=== PATIENT | female | born 1985 | race African-American/Black ===

== ENCOUNTER 2023-08-17 11:53 | Emergency (ER) | payer BC, SELFPAY ==
[2023-08-17] VITALS (9 sets, daily range): BP systolic 99–115; BP diastolic 56–87; PULSE 65–93; RESP 12–21; TEMP 36.4; O2SAT 100
--- NOTE | ~2023-08-17 | CT_ITS ---
EXAMINATION: CT abdomen pelvis w con DATE: 08/17/2023 15:14 INDICATION: Lower abdominal pain. TECHNIQUE: Computed tomography (CT) of the abdomen and pelvis was performed with 100 mL Omnipaque-350 intravenous contrast. Automated exposure control and iterative reconstruction technique were employe d. The dose-length product was 510.06 mGy-cm. COMPARISON: None FINDINGS: Lung bases are clear. Heart size is normal. No pericardial or pleural effusion. Liver, gallbladder, s pleen, pancreas, bilateral adrenal glands and kidneys are normal. Bowels including the appendix are n ormal. Marked enlargement of the uterus measuring 18.0 x 2.7 x 10.2 cm. There there is a peripherally enhancing centrally hypoenhancing intrauterine mass measuring 15.7 x 9.2 x 11.7 cm which appears simeon tered primarily in the posterior fundus which appears to extend across the endometrial complex to the anterior uterine body. There is extensive fine branching pattern of gas within the mass. There is a separate smaller peripherally enhancing, centrally hypoenhancing mass measuring 4.2 cm in maximal sandra meter at the lower uterine segment. Bladder and bilateral adnexa are unremarkable. Small amount of li modesto physiologic free fluid in the cul-de-sac. No abscess or free intraperitoneal gas. No pathologica lly enlarged abdominal or pelvic lymphadenopathy. Bones are unremarkable. IMPRESSION: 1. Fine branching pattern of gas within a large intrauterine mass which appears to cross endometrial complex. 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 Differential for in trauterine gas would include pelvic inflammatory disease/endometritis, post intrauterine instrumentat ion, malignancy and abnormal fistulous communication with the gastrointestinal tract. Reviewed, dictated and finalized at location A. IMPRESSION: 1. Fine branching pattern of gas within a large intrauterine mass which appears to cross endometrial complex. Appearance most suggestive of uterine fibroids w ith infected fibromyoma. Differential for intrauterine gas would include pelvic inflammatory disease/endometritis, post intrauterine instrumentation, malignan cy and abnormal fistulous communication with the gastrointestinal tract.
[2023-08-17 14:32] LABS: Basophils Absolute Auto 0.1 K/mm3 (0.0-0.1); Basophils Percent Auto 0.4 % (0.2-1.2); Eosinophils Absolute Auto 0.2 K/mm3 (0-0.3); Eosinophils Percent Auto 1.4 % (0-4.4); Hematocrit 29.4 % (37.0-47.0); Hemoglobin 8.8 g/dL (12.0-15.0); Immature Granulocyte Absolute 0.14 K/mm3 (0.00-0.031); Immature Granulocyte Percent A 1.1 % (0-0.5); Lymphocytes Absolute Auto 2.53 K/mm3 (0.9-3.2); Lymphocytes Percent Auto 19.3 % (18.3-44.2); Mean Corpuscular HGB Conc 29.9 g/dl (32-36); Mean Corpuscular Hemoglobin 23.1 pg (26-34); Mean Corpuscular Volume 77.2 fl (80-100); Mean Platelet Volume 10.4 fl (7.4-10.4); Monocytes Absolute Auto 0.8 K/mm3 (0.1-0.6); Monocytes Percent Auto 6.2 % (2.6-8.5); Neutrophils Absolute Auto 9.4 K/mm3 (1.3-6.7); Neutrophils Percent Auto 71.6 % (45.5-73.1); Platelet Count Result 328 k/mm3 (150-375); Red Blood Count 3.81 M/mm3 (4.2-5.4); Red Cell Distribution Width 17.4 % (11.5-14.5); White Blood Count 13.1 K/mm3 (4.5-10.0)
[2023-08-17] MEDS: SODIUM CHLORIDE 0.9% IV 1,000 ML 999 ML IV CONT (14:36)
[2023-08-17 14:48] LABS: Alanine Aminotransferase 16 U/L (6-35); Alkaline Phosphatase 80 U/L (38-126); Anion Gap 6 mmol/L (8-16); Aspartate Amino Transferase 24 U/L (14-36); Bilirubin,Total 0.4 mg/dL (0.2-1.3); Blood Urea Nitrogen 12 mg/dL (7-17); Calcium 9.3 mg/dL (8.4-10.2); Carbon Dioxide 30 mmol/L (22-30); Chloride 101 mmol/L (98-107); Estimated CRCL calculation 51 ml/min; Estimated Glomerular Filt Rate 56; Glucose 124 mg/dL (65-110); Lipase 275 U/L (23-300); Potassium 3.8 mmol/L (3.4-5.0); Sodium 137 mmol/L (137-145)
[2023-08-17 14:54] LABS: Platelet Estimate Adequate (Adequate)
[2023-08-17 14:55] LABS: Schistocytes None Seen (NORMAL)
[2023-08-17 14:56] LABS: Anisocytosis 2+ (NORMAL); Hypochromasia 1+ (NORMAL)
[2023-08-17 15:18] LABS: Appearance Urine Cloudy (Clear); Bacteria Urine 2+ /hpf; Bilirubin Urine Negative (Negative); Blood Urine 3+ (Negative); Color Urine Yellow (Yellow); Glucose Urine UA Negative (Negative); Ketones Urine Trace mg/dL (Negative); Leukocyte Esterase Ur 1+ LEU/UL (Negative); Mucus Urine Present /lpf; Need Manual Microscopic Reviewed; Nitrate Urine Negative (Negative); Non Pathogenic Casts >20; Protein Urine 1+ mg/dL (Negative); Specific Grav Ur 1.023 (1.001-1.035); Squamous Epithelial Cell Urine Moderate /hpf (Few); Urobilinogen Urine 0.2 mg/dL (<2.0); WBC Urine 21-50 /hpf
[2023-08-17 15:19] LABS: Add Urine Microscopic? YES
--- NOTE | 2023-08-17 15:54 | ED.ABDPAIN ---
HPI - Abdominal Pain General Chief Complaint: Abdominal Pain Stated Complaint: Labs, Md referral Time Seen by Provider: 08/17/23 14:17 History of Present Illness HPI narrative: 38-year-old female presented to the emergency department for evaluation of low-grade fever and intermittent abdominal pain. Patient went to the [facility] for nonsurgical therapy and had uterine fibroid embolization procedure on 08/06. Patient states since then she has had low-grade fevers and has had increased abdominal pain. Patient did take her Percocet this morning and does feel improved at this time. Patient is afebrile upon arrival to the ED and is not tachycardic. Related Data Allergies Allergy/AdvReac Type Severity Reaction Status Date / Time acetaminophen [From Ultracet] AdvReac Other Verified 08/17/23 14:20 tramadol [From Ultracet] AdvReac Other Verified 08/17/23 14:20 Review of Systems Review of Systems: All systems reviewed & are unremarkable except as noted in HPI and below Exam Narrative: APPEARANCE: Well appearing, no pain, no distress, well-nourished. HEAD: normocephalic, atraumatic. EYES: PERRLA/EOMI, conjunctivae clear. NOSE: Normal no drainage EARS:TMS clear with good light reflex. THROAT: Pharynx clear, no exudate. NECK: Supple. No adenopathy, no masses. RESPIRATORY: Airway patent, respirations nonlabored. Clear to auscultation bilaterally, no rales, rhonchi, wheezing. CARDIOVASCULAR: Regular rate and rhythm without murmurs rubs or gallops. ABDOMINAL: Soft, nontender, nondistended, normal bowel sounds MUSCULOSKELETAL: Moves all extremities. Strength/ROM intact, No edema, No calf tenderness. NEURO: Alert. Cranial nerves II through XII intact. Grossly intact SKIN: Warm, dry. Normal Color Grossly intact Course Course Emergency Course: 38-year-old female presented ED for evaluation of low-grade fever after uterine fibroid embolization. Patient is afebrile but does have a leukocytosis of 13.1. No significant abnormalities on her CMP. UA does show red cells and white blood cells along with bacteria in the urine. Urine culture is pending. I discussed the case with Dr. Layne that was on-call for [employer] and he was comfortable with started the patient on Levaquin Flagyl and having her follow-up in the clinic as outpatient next week. Patient was started on IV Levaquin and Flagyl in the ED. Patient was updated on the results of her work-up and plan for treatment and follow-up. All question concerns were addressed. I discussed the case with Renee Prieto, the nurse practitioner for [facility] and I discussed the case with Dr. Nguyen and he was comfortable with the plan with antibiotics and close follow-up with [employer]. Vital Signs Vital signs: Vital Signs Temperature 97.6 F 08/17/23 12:04 Pulse Rate 93 08/17/23 12:04 Respiratory Rate 14 08/17/23 12:04 Blood Pressure 99/56 L 08/17/23 12:04 Pulse Oximetry 100 08/17/23 12:04 Oxygen Delivery Room Air 08/17/23 12:04 Temperature 97.6 F 08/17/23 12:04 Pulse Rate 73 08/17/23 18:16 Respiratory Rate 20 08/17/23 18:16 Blood Pressure 107/66 08/17/23 18:16 Pulse Oximetry 100 08/17/23 18:16 Oxygen Delivery Room Air 08/17/23 12:04 MDM - Abdominal Pain Differential Diagnosis Differential diagnosis: Likely abdominal pain, constipation, diverticulitis, endometriosis and small bowel obstruction Lab Data Attestation: I reviewed the patient's lab results. 08/17/23 14:24 08/17/23 14:24 Labs: Lab Results 08/17/23 08/17/23 Range/Units 14:23 14:24 WBC 13.1 H (4.5-10.0) K/mm3 RBC 3.81 L (4.2-5.4) M/mm3 Hgb 8.8 L (12.0-15.0) g/dL Hct 29.4 L (37.0-47.0) % MCV 77.2 L (80-100) fl MCH 23.1 L (26-34) pg MCHC 29.9 L (32-36) g/dl RDW 17.4 H (11.5-14.5) % Plt Count 328 (150-375) k/mm3 MPV 10.4 (7.4-10.4) fl Immature Gran % (Auto) 1.1 H (0-0.5) % Neut % (Auto) 71.6 (45.5-73.1)
[2023-08-17] MEDS: metroNIDAZOLE 500 MG/ISO 100ML 500 MG/100 ML BAG 100 MG IVPB (16:29)
[2023-08-17] MEDS: levoFLOXacin 750 MG/D5W 150 ML 750 MG/150 ML BAG 100 MG IVPB (17:28)
== END 2023-08-17 19:12 | disposition home or self-care (01) ==
PROVIDERS: Emergency Provider Emergency Medicine
DX: G89.18 Other acute postprocedural pain (principal); R10.9 Unspecified abdominal pain
CPT/HCPCS: 36415; 74177; 80053; 81001; 81025; 83690; 85025; 87086; 96361; 96365; 96366; 96367; 99284; J1836; J1956; J7030; Q9967